=== PATIENT | female | born 2000 | race Caucasian/White ===

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

== ENCOUNTER 2019-09-07 08:02 | Emergency (ER) | payer MEDICAID, OTHER ==
[~2019-09-07] VITALS: Ht 167.6 cm; Wt 61.0 kg
[2019-09-07] MEDS ORDERED: NO HOME MEDS (08:34)
[2019-09-07] MEDS ORDERED: normal saline 1000ML IV soln IVB ONE (08:45)
[2019-09-07] MEDS ORDERED: metoclopramide 5 mg/ml inj IV ONE (08:45)
[2019-09-07 09:07] LABS: BASOPHILS % (AUTO) 0.4 % (0-1); EOSINOPHILS % (AUTO) 0.1 % (0-6); HEMATOCRIT 44.3 % (35.0-45.0); HEMOGLOBIN 15.1 g/dl (12.0-16.0); LYMPHOCYTES # (AUTO) 1.4 X10'3 (1.1-4.8); MEAN CORPUSCULAR HEMOGLOBIN 28.2 PG (27.0-31.0); MEAN CORPUSCULAR VOLUME 82.8 FL (78-98); MEAN PLATELET VOLUME 8.1 FL (7.4-10.4); MONOCYTES # (AUTO) 0.5 X10'3 (0-0.9); MONOCYTES % (AUTO) 4.3 % (2-12); NEUTROPHILS # (AUTO) 8.7 X10'3 (1.8-7.7); NEUTROPHILS % (AUTO) 82.2 % (42-75); PLATELET COUNT 312 X10'3 (140-440); RED BLOOD COUNT 5.35 X10'6 (4.20-5.60); RED CELL DISTRIBUTION WIDTH 13.3 % (11.5-14.5); WHITE BLOOD COUNT 10.6 X10'3 (4.5-11.0)
[2019-09-07 09:24] LABS: ALANINE AMINOTRANSFERASE 15 U/L (12-78); ALBUMIN 4.9 G/DL (3.4-5.0); ALBUMIN/GLOBULIN RATIO 1.5 (1.1-1.5); ALKALINE PHOSPHATASE 60 IU/L (20-180); ANION GAP 9 (8-16); ASPARTATE AMINO TRANSFERASE 13 U/L (10-37); BETA HCG,QUANTITATIVE < 1.0 mIU/ml; BILIRUBIN,TOTAL 1.3 MG/DL (0.1-1.0); BLOOD UREA NITROGEN 15 MG/DL (7-18); BUN/CREATININE RATIO 14.7 (6.6-38.0); CALCIUM 9.4 MG/DL (8.5-10.1); CHLORIDE 100 MMOL/L (99-107); CREATININE 1.02 MG/DL (0.40-0.90); GLUCOSE 114 MG/DL (70-104); SODIUM 138 MMOL/L (135-145); TOTAL PROTEIN 8.1 G/DL (6.4-8.2); eGFR 69 ML/MIN
[2019-09-07 09:25] LABS: POTASSIUM 2.9 MMOL/L (3.5-5.1)
[2019-09-07] MEDS ORDERED: POTASSIUM BICARB 20meq eff tab 20 MEQ TABLET.EFF PO ONE (09:45)
[2019-09-07 10:02] VITALS: BP 146/87
== END 2019-09-07 10:04 | disposition home or self-care (01) ==
LOC: ER 08:03
DX: R11.2 Nausea with vomiting, unspecified (principal); N93.9 Abnormal uterine and vaginal bleeding, unspecified
CPT/HCPCS: 36415; 80053; 84702; 85025; 96374; 99283; J2765; J7030

== ENCOUNTER 2020-12-17 05:49 | Emergency (ER) | payer MEDICAID ==
[~2020-12-17] VITALS: Ht 167.6 cm; Wt 81.8 kg
[~2020-12-17 05:49] MED LIST: NO HOME MEDS
[2020-12-17 05:52] VITALS: BP 146/95
[2020-12-17 06:45] LABS: CLARITY,URINE SLIGHTLY CLOUDY (Clear); COLOR,URINE YELLOW (Yellow); GLUCOSE, URINE NEGATIVE (Neg); KETONES,URINE TRACE mg/dl (Neg); LEUKOCYTE ESTERASE ,URINE NEGATIVE (Neg); NITRITES, URINE NEGATIVE (Neg); OCCULT BLOOD,URINE SMALL (Neg); PROTEIN,URINE NEGATIVE (Neg); URINE HCG NEGATIVE (NEG); UROBILINOGEN,URINE 0.2 E.U/dL (0.2-1.0)
[2020-12-17 07:24] LABS: UA COLLECTION TYPE CLN CATCH MIDSTREAM
[2020-12-17 07:41] LABS: BACTERIA,URINE FEW /HPF (Neg); RBC,URINE 0-2 /HPF (0-2); SQUAMOUS EPITHELIAL CELL,UR MODERATE /LPF (FEW); WBC,URINE 0-4 /HPF (0-4)
== END 2020-12-17 07:14 | disposition left against medical advice (07) ==
LOC: ER 05:49
DX: R11.2 Nausea with vomiting, unspecified (principal); Z53.21 Procedure and treatment not carried out due to patient leaving prior to being seen by health care provider
CPT/HCPCS: 81001; 81025

== ENCOUNTER 2021-09-27 14:40 | Emergency (ER) | payer MEDICAID ==
[~2021-09-27] VITALS: Ht 167.6 cm; Wt 81.8 kg
[2021-09-27 14:43] VITALS: BP 129/80
[2021-09-27] MEDS ORDERED: PNV1TABL PO (15:25)
--- NOTE | 2021-09-27 15:31 | NUR ---
Spouse is at the bedside. Pt had a brief episode of pelvic cramps this am. Denies bleeding. Muliple home tests were positive.
--- NOTE | 2021-09-27 16:21 | NUR ---
Pt and her spouse given and understands d/c instructions. Ambulatory with a steady gait.
== END 2021-09-27 16:23 | disposition home or self-care (01) ==
LOC: ER 14:41
DX: O26.90 Pregnancy related conditions, unspecified, unspecified trimester (principal); R10.2 Pelvic and perineal pain; Z3A.00 Weeks of gestation of pregnancy not specified; Z79.899 Other long term (current) drug therapy
CPT/HCPCS: 36415; 84702; 99283

== ENCOUNTER 2021-11-11 10:14 | Emergency (ER) | payer MEDICAID ==
[~2021-11-11] VITALS: Ht 167.6 cm; Wt 90.0 kg
[~2021-11-11 10:14] MED LIST changes: +PNV1TABL PO
[2021-11-11 10:18] VITALS: BP 129/81
--- NOTE | 2021-11-11 12:27 | NUR ---
Attempted to call patient back to an ER room x3 without patient being in lobby. Called patient at listed number with no answer. Addendum: 11/11/21 at [address] Talya live
== END 2021-11-11 12:28 | disposition left against medical advice (07) ==
LOC: ER 10:14
DX: U07.1 COVID-19 (principal); Z53.21 Procedure and treatment not carried out due to patient leaving prior to being seen by health care provider